=== PATIENT | female | born 1975 | race Two or more races ===

== ENCOUNTER 2024-09-09 15:34 | Emergency (ER) | payer OTHER ==
[~2024-09-09] VITALS: Ht 154.9 cm; Wt 83.0 kg
[2024-09-09 18:29] VITALS: BP 115/63; TEMP 97.9; O2SAT 98
== END 2024-09-09 18:30 | disposition home or self-care (01) ==
LOC: ER 16:04
DX: M25.561 Pain in right knee (principal); R22.41 Localized swelling, mass and lump, right lower limb; W01.0XXA Fall on same level from slipping, tripping and stumbling without subsequent striking against object, initial encounter; Y93.89 Activity, other specified; Y92.89 Other specified places as the place of occurrence of the external cause; Y99.8 Other external cause status
CPT/HCPCS: 73564-TC